=== PATIENT | female | born 1980 | race Caucasian/White ===

== ENCOUNTER 2017-09-22 21:37 | Emergency (ER) | payer SELFPAY ==
[2017-09-22] MEDS ORDERED: LIDOCAINE 1%-EPI 1:100000 20 ML MDV SUBQ STA (22:34)
--- NOTE | 2017-09-22 22:36 | ED Physician Documentation ---
PD HPI WOUND RECHECK - Stated complaint Stated Complaint: SORE ON BOTTOM - Chief complaint Chief Complaint: Wound - Histroy obtained from History obtained from: Patient - History of Present Illness Location: Other (36-year-old woman with history of Hemorrhoids, she has been a little constipated since she quit smoking a month ago. She has a painful lump in her rectum today without fevers or chills.) Review of Systems Constitutional: reports: Reviewed and negative Throat: reports: Reviewed and negative Cardiac: reports: Reviewed and negative PD PAST MEDICAL HISTORY - Past Medical History Past Medical History: No - Past Surgical History Past Surgical History: No - Present Medications Home Medications: Ambulatory Orders Medication Instructions Recorded Confirmed No Known Home Medications [No 09/22/17 09/22/17 Known Home Medications] - Allergies Allergies/Adverse Reactions: Allergies Allergy/AdvReac Type Severity Reaction Status Date / Time Penicillins Allergy Hives Verified 09/22/17 21:52 - Social History Does the pt smoke?: No Smoking Status: Former smoker Does the pt have substance abuse?: No Substance Use and Type: Marijuana - Immunizations Immunizations are current?: No Immunizations: TDAP >10years/unknown - POLST Patient has POLST: No PD ED PE NORMAL - Vitals Vital signs reviewed: Yes - General General: Alert and oriented X 3, No acute distress - Female Female : Manager Contract present (Frieda Bass RN) - Rectal Rectal: Other (She has a very tender and acutely thrombosed left-sided hemorrhoid) - Neuro Neuro: Alert and oriented X 3, Normal speech - Psych Psych: Normal mood, Normal affect Results - Vitals Vitals: Vital Signs - 24 hr 09/22/17 21:48 Temperature 36.8 C Heart Rate 101 H Respiratory 18 Rate Blood Pressure 127/92 H O2 Saturation 100 Oxygen O2 Source Room air Procedures - Abscess I&D (location) Left hemorrhoid Preparation: Betadine, Lidocaine 1%, With epi Incision: Incised with scalpel, Other (After informed consent she did want the hemorrhoid that was acutely thrombosed incised and drained. The nurse was present for the entire procedure. It was injected at the base with lidocaine with epinephrine with good hemostasis and pain control and then a #15 blade was used to open the top and the clot was expressed. She tolerated this very well.) Departure - Departure Disposition: 01 Home, Self Care Clinical Impression: Thrombosed external hemorrhoid Condition: Good Record reviewed to determine appropriate education?: Yes Instructions: ED Hemorrhoids Comments: Need to keep her stools very soft, drink plenty water and eat a high-fiber diet , also take Colace/docusate which is available [id number] twice a day. He can also buy some [id number] hemorrhoid suppositories and do sits baths at least twice a day as discussed. Your blood pressure was elevated today on check into the emergency department. This does not mean that you have hypertension, it is a common phenomenon to come to the emergency department and have elevated blood pressure. I recommend that you see your primary care physician within the week to have it rechecked when you are feeling better.
[2017-09-22] MEDS ORDERED: LIDOCAINE 1%-EPI 1:100000 30 ML MDV ONE (22:46)
[2017-09-22 23:01] VITALS: BP 137/77
== END 2017-09-22 23:01 | disposition home or self-care (01) ==
LOC: ED 21:37
DX: K64.5 Perianal venous thrombosis (principal); R03.0 Elevated blood-pressure reading, without diagnosis of hypertension; Z87.891 Personal history of nicotine dependence
CPT/HCPCS: 46083; 99283